=== PATIENT | male | born 1995 | race African-American/Black ===

== ENCOUNTER 2018-07-28 07:23 | Emergency (ER) | payer OTHER ==
[2018-07-28] MEDS ORDERED: predniSONE 20 MG TAB ONE (07:43)
[2018-07-28] MEDS ORDERED: IPRATROPIUM BROM 0.5MG/2.5ML ONE ×2 (07:59→09:41)
[2018-07-28] MEDS ORDERED: ALBUTEROL 2.5 MG/3 ML NEB SOL ONE ×3 (07:59→11:09)
--- NOTE | 2018-07-28 11:40 | ER ---
Nurse's Notes [facility] Name: Heron Long Age: 22 yrs Sex: Male : 1995 Arrival Date: 07/28/2018 Time: 07:25 Bed 19 Private MD: Diagnosis: Severe persistent asthma with (acute) exacerbation Presentation: 07/28 07:25 Presenting complaint: EMS states: called out for asthma attack that started this em morning, SPO2 on scene was 92% on RA with audible wheezing, pt reports chest pain with cough, given A\T\A treatment, SPO2 98% after treatment, pt appears in no apparent distress. Transition of care: patient was not received from another setting of care. Onset of symptoms was July 28, 2018. Risk Assessment: Do you want to hurt yourself or someone else? Patient reports no desire to harm self or others. Initial Sepsis Screen: Does the patient meet any 2 criteria? No. Patient's initial sepsis screen is negative. Does the patient have a suspected source of infection? No. Patient's initial sepsis screen is negative. Care prior to arrival: Medication(s) given: Albuterol Neb x 1, Atrovent Neb x 1. 07:25 Method Of Arrival: EMS: [facility] em 07:25 Acuity: DIPTI 3 iw Triage Assessment: 07:32 General: Appears in no apparent distress. comfortable, Behavior is calm, cooperative. em Pain: Complains of pain in chest Pain currently is 7 out of 10 on a pain scale. Historical: - Allergies: 07:30 No Known Allergies; em - Home Meds: 07:30 Flovent Inhl [Active]; flunisolide 25 mcg (0.025 %) Nasal spry [Active]; Minocycline em Oral [Active]; Nasonex 50 mcg/actuation Nasal spry [Active]; - PMHx: 07:32 Asthma; em - PSHx: 07:32 None; em - Immunization history:: Adult Immunizations up to date. - Social history:: Smoking status: Patient/guardian denies using tobacco. - Ebola Screening: : Patient negative for fever greater than or equal to 101.5 degrees Fahrenheit, and additional compatible Ebola Virus Disease symptoms Patient denies exposure to infectious person Patient denies travel to an Ebola-affected area in the 21 days before illness onset No symptoms or risks identified at this time. Screenin:42 Abuse screen: Denies threats or abuse. Nutritional screening: No deficits noted. em Tuberculosis screening: No symptoms or risk factors identified. Fall Risk None identified. Assessment: 07:44 General: Appears in no apparent distress. comfortable, Behavior is calm, cooperative, em Denies fever. Pain: Complains of pain in chest Pain currently is 7 out of 10 on a pain scale. Pain began 2 hours ago. Aggravated by. Neuro: Level of Consciousness is awake, alert, obeys commands, Oriented to person, place, time, situation. Cardiovascular: Reports chest pain, shortness of breath, Denies nausea, vomiting, Capillary refill < 3 seconds Patient's skin is warm and dry. Respiratory: Reports shortness of breath cough that is non-productive, pain with cough Airway is patent Respiratory effort is even, unlabored, Respiratory pattern is regular, symmetrical, Breath sounds with wheezes in left posterior lower lobe and right posterior lower lobe the patient has mild shortness of breath. GI: Abdomen is flat. : No signs and/or symptoms were reported regarding the genitourinary system. EENT: No signs and/or symptoms were reported regarding the EENT system. Derm: Skin is intact, Skin is pink, warm \T\ dry. Musculoskeletal: Capillary refill < 3 seconds, Range of motion: intact in all extremities. 08:00 Reassessment: Patient appears in no apparent distress at this time. I agree with above iw assessment by Oneil Valdes LVN. 08:23 Reassessment: Patient appears in no apparent distress at this time. Patient and/or em family updated on plan of care and expected duration. Pain level reassessed. Patient is alert, oriented x 3, equal unlabored respirations, skin warm/dry/pink. assisted pt with urinal, correctional officer captain at bedside, breathing treatment complete, pt wheeled to x-ray dept. with correctional officers. 09:15 Reassessment: Patient appears in no apparent distress at this time. Patient and/or em family updated on plan of care and expected duration. Pain level reassessed. Patient is alert, oriented x 3, equal unlabored respirations, skin warm/dry/pink. provider at bedside Patient states symptoms have improved. 10:31 Reassessment: Patient appears in no apparent distress at this time. Patient and/or em family updated on plan of care and expected duration. Pain level reassessed. Patient is alert, oriented x 3, equal unlabored respirations, skin warm/dry/pink. Patient states symptoms have improved. 11:11 Reassessment: Patient appears in no apparent distress at this time. Patient and/or em family updated on plan of care and expected duration. Pain level reassessed. pt request another breathing treatment, pt wheezing shanice. SPO2 92%, provider notified. 12:23 Reassessment: Patient appears in no apparent distress at this time. Patient and/or em family updated on plan of care and expected duration. Pain level reassessed. Patient is alert, oriented x 3, equal unlabored respirations, skin warm/dry/pink. called report to JOJO Maldonado at [facility] in [place], pending transportation Patient states symptoms have improved. 12:53 Reassessment: Patient appears in no apparent distress at this time. Patient and/or em family updated on plan of care and expected duration. Pain level reassessed. Patient is alert, oriented x 3, equal unlabored respirations, skin warm/dry/pink. report given to [facility]. Vital Signs: 07:32 BP 129 / 69; Pulse 87; Resp 20; Temp 97.9(O); Pulse Ox 98% on R/A; Weight 79.38 kg; em Height 5 ft. 8 in. (172.72 cm); Pain 7/10; 08:11 BP 131 / 67; Pulse 75; Resp 18; Pulse Ox 100% on Nebulizer Mask; em 09:33 BP 131 / 76; Pulse 64; Resp 20; Pulse Ox 97% on R/A; mh5 10:34 BP 112 / 49; Pulse 71; Resp 20; Pulse Ox 96% on R/A; mh5 11:54 BP 126 / 73; Pulse 87; Resp 21; Pulse Ox 93% on R/A; Pain 8/10; em 12:53 BP 118 / 81; Pulse 82; Resp 22; Pulse Ox 92% on R/A; em 07:32 Body Mass Index 26.61 (79.38 kg, 172.72 cm) ED Course: 07:25 Patient arrived in ED. em 07:27 Darell Moya MD is Attending Physician. gs 07:32 Arm band placed on. em 07:33 Bed in low position. Call light in reach. Adult w/ patient. correctional officers at em bedside. Pulse ox on. NIBP on. 07:38 Oneil Valdes LVN is Primary Nurse. em 07:56 Triage completed. iw 08:44 X-ray completed. Patient tolerated procedure well. tm4 08:45 XRAY Chest Pa And Lat (2 Views) In Process Unspecified. EDMS 10:39 initiated a transfer with Krystle at the [facility] managed care line. eb 11:[address] Alvarado from [facility] with ED doctor for patient transfer consultation. eb 12:23 No provider procedures requiring assistance completed. Patient did not have IV access em during this emergency room visit. Administered Medications: 07:42 Drug: predniSONE 40 mg Route: PO; em 07:50 Follow up: Response: No adverse reaction em 07:57 Drug: Albuterol 2.5 mg Route: Inhalation; em 08:30 Follow up: Response: No adverse reaction; Marked relief of symptoms em 07:57 Drug: AtroVENT Aerosol 0.5 mg Route: Inhalation; em 08:30 Follow up: Response: No adverse reaction; Marked relief of symptoms em 08:30 Follow up: Response: No adverse reaction em 09:41 Drug: Albuterol 2.5 mg Route: Inhalation; em 10:20 Follow up: Response: No adverse reaction em 09:41 Drug: AtroVENT Aerosol 0.5 mg Route: Inhalation; em 10:20 Follow up: Response: No adverse reaction em 11:10 Drug: Albuterol 2.5 mg Route: Inhalation; em 11:40 Follow up: Response: No adverse reaction em Output: 08:25 Urine: 600ml (Voided); Total: 600ml. em Outcome: 11:40 ER care complete, transfer ordered by . 12:53 Transferred by ground EMS to [facility], Transfer form em completed. X-rays sent w/ patient. 12:53 Condition: good 12:53 Instructed on the need for transfer, Demonstrated understanding of instructions. 13:01 Patient left the ED. iw Signatures: Dispatcher [employer] EDMS Monique Massey tm4 Oneil Valdes LVN LVN em Adilia Phillip, JOJO URIBE No Wooten [facility] Darell Moya MD MD gs Botello, Elizabeth eb
--- NOTE | 2018-07-28 11:40 | RAD REPORT ---
EXAM DESCRIPTION: RAD - Chest Pa And Lat (2 Views) - 07/28/2018 8:46 am CLINICAL HISTORY: COUGH Chest pain. COMPARISON: No comparisons FINDINGS: The lungs are clear. The heart is normal in size. No displaced fractures. IMPRESSION: No acute or concerning finding suspected.
--- NOTE | 2018-07-28 11:40 | EDPHYS ---
Physician Documentation [facility] Name: Heron Long Age: 22 yrs Sex: Male : 1995 Arrival Date: 07/28/2018 Time: 07:25 Bed 19 Private MD: ED Physician Darell Moya HPI: 07/28 11:07 This 22 yrs old Black Male presents to ER via EMS with complaints of wheezing, asthma gs attacks. 11:07 Onset: The symptoms/episode began/occurred acutely, today. Modifying factors: The gs symptoms are alleviated by inhaler, the symptoms are aggravated by nothing. Associated signs and symptoms: Pertinent negatives: chest pain, fever, palpitations. Severity of symptoms: At their worst the symptoms were moderate in the emergency department the symptoms are unchanged. The patient has experienced similar episodes in the past, several times. Historical: - Allergies: :30 No Known Allergies; em - Home Meds: 07:30 Flovent Inhl [Active]; flunisolide 25 mcg (0.025 %) Nasal spry [Active]; Minocycline em Oral [Active]; Nasonex 50 mcg/actuation Nasal spry [Active]; - PMHx: 07:32 Asthma; em - PSHx: 07:32 None; em - Immunization history:: Adult Immunizations up to date. - Social history:: Smoking status: Patient/guardian denies using tobacco. - Ebola Screening: : Patient negative for fever greater than or equal to 101.5 degrees Fahrenheit, and additional compatible Ebola Virus Disease symptoms Patient denies exposure to infectious person Patient denies travel to an Ebola-affected area in the 21 days before illness onset No symptoms or risks identified at this time. ROS: 11:07 All other systems are negative. gs Exam: 11:07 Head/Face: Normocephalic, atraumatic. Eyes: Pupils equal round and reactive to light, gs extra-ocular motions intact. Lids and lashes normal. Conjunctiva and sclera are non-icteric and not injected. Cornea within normal limits. Periorbital areas with no swelling, redness, or edema. ENT: Nares patent. No nasal discharge, no septal abnormalities noted. Tympanic membranes are normal and external auditory canals are clear. Oropharynx with no redness, swelling, or masses, exudates, or evidence of obstruction, uvula midline. Mucous membranes moist. Neck: Trachea midline, no thyromegaly or masses palpated, and no cervical lymphadenopathy. Supple, full range of motion without nuchal rigidity, or vertebral point tenderness. No Meningismus. Chest/axilla: Normal chest wall appearance and motion. Nontender with no deformity. No lesions are appreciated. 11:07 Abdomen/GI: Soft, non-tender, with normal bowel sounds. No distension or tympany. No guarding or rebound. No evidence of tenderness throughout. Back: No spinal tenderness. No costovertebral tenderness. Full range of motion. Skin: Warm, dry with normal turgor. Normal color with no rashes, no lesions, and no evidence of cellulitis. MS/ Extremity: Pulses equal, no cyanosis. Neurovascular intact. Full, normal range of motion. Neuro: Awake and alert, GCS 15, oriented to person, place, time, and situation. Cranial nerves II-XII grossly intact. Motor strength 5/5 in all extremities. Sensory grossly intact. Cerebellar exam normal. Normal gait. 11:07 Constitutional: The patient appears alert, awake, in obvious distress, moderately distressed. 11:07 Cardiovascular: Rate: normal, Rhythm: regular, Pulses: no pulse deficits are appreciated. 11:07 Respiratory: Vital Signs: 07:32 BP 129 / 69; Pulse 87; Resp 20; Temp 97.9(O); Pulse Ox 98% on R/A; Weight 79.38 kg; em Height 5 ft. 8 in. (172.72 cm); Pain 7/10; 08:11 BP 131 / 67; Pulse 75; Resp 18; Pulse Ox 100% on Nebulizer Mask; em 09:33 BP 131 / 76; Pulse 64; Resp 20; Pulse Ox 97% on R/A; mh5 10:34 BP 112 / 49; Pulse 71; Resp 20; Pulse Ox 96% on R/A; mh5 11:54 BP 126 / 73; Pulse 87; Resp 21; Pulse Ox 93% on R/A; Pain 8/10; em 12:53 BP 118 / 81; Pulse 82; Resp 22; Pulse Ox 92% on R/A; em 07:32 Body Mass Index 26.61 (79.38 kg, 172.72 cm) em MDM: 07:27 Patient medically screened. 11:32 Differential diagnosis: acute asthma, exercise-induced asthma, reactive airway, gs pneumonia. Data reviewed: vital signs, nurses notes. Response to treatment: the patient's symptoms have markedly improved after treatment. 07/28 07:29 Order name: XRAY Chest Pa And Lat (2 Views) 07/28 07:29 Order name: PEAK FLOW 07/28 11:10 Order name: Diet Regular; Complete Time: 11:10 em Administered Medications: 07:42 Drug: predniSONE 40 mg Route: PO; em 07:50 Follow up: Response: No adverse reaction em 07:57 Drug: Albuterol 2.5 mg Route: Inhalation; em 08:30 Follow up: Response: No adverse reaction; Marked relief of symptoms em 07:57 Drug: AtroVENT Aerosol 0.5 mg Route: Inhalation; em 08:30 Follow up: Response: No adverse reaction; Marked relief of symptoms em 08:30 Follow up: Response: No adverse reaction em 09:41 Drug: Albuterol 2.5 mg Route: Inhalation; em 10:20 Follow up: Response: No adverse reaction em 09:41 Drug: AtroVENT Aerosol 0.5 mg Route: Inhalation; em 10:20 Follow up: Response: No adverse reaction em 11:10 Drug: Albuterol 2.5 mg Route: Inhalation; em 11:40 Follow up: Response: No adverse reaction em Disposition: 07/28/18 11:40 Transfer ordered to [facility]. Diagnosis is Severe persistent asthma with (acute) exacerbation. - Reason for transfer: Higher level of care. - Accepting physician is kevin. - Condition is Stable. - Problem is an acute exacerbation. - Symptoms have improved. Signatures: Dispatcher [employer] EDHI Oneil Valdes, MEGHAN SUPERINTENDENT TRACK em Adilia Phillip RN RN iw Darell Moya MD MD Corrections: (The following items were deleted from the chart) 11:28 11:27 EKG - Nurse/Tech ordered. [facility] 11:41 11:40 07/28/2018 11:40 Transfer ordered to [facility]. Diagnosis is Severe persistent asthma with (acute) exacerbation. Reason for transfer: Higher level of care. Accepting physician is candice. Condition is Stable. Problem is an acute exacerbation. Symptoms have improved. 13:01 11:41 07/28/2018 11:40 Transfer ordered to [facility]. Diagnosis is Severe iw persistent asthma with (acute) exacerbation. Reason for transfer: Higher level of care. Accepting physician is kevin. Condition is Stable. Problem is an acute exacerbation. Symptoms have improved. gs
== END 2018-07-28 13:01 | disposition short-term general hospital (02) ==
LOC: ER 07:23
DX: J45.51 Severe persistent asthma with (acute) exacerbation (principal)
CPT/HCPCS: 71046; 99285; J7512

== ENCOUNTER 2018-08-17 11:30 | Emergency (ER) | payer OTHER ==
[2018-08-17] MEDS ORDERED: predniSONE 20 MG TAB ONE (11:54)
[2018-08-17] MEDS ORDERED: ALBUTEROL 2.5 MG/3 ML NEB SOL ONE (11:54)
[2018-08-17] MEDS ORDERED: FAMOTIDINE 20 MG TAB ONE (11:55)
--- NOTE | 2018-08-17 13:21 | EDPHYS ---
Physician Documentation [facility] Name: Heron Long Age: 22 yrs Sex: Male : 1995 Arrival Date: 08/17/2018 Time: 11:37 Bed 19 Private MD: ED Physician Elmo Joseph HPI: 08/17 11:52 This 22 yrs old Black Male presents to ER via [employer] with complaints of Asthma snw Exacerbation. 11:52 The patient presents to the emergency department with wheezing, Current therapy: snw albuterol inhaler, steroid inhaler, that began weather change. Onset: The symptoms/episode began/occurred suddenly, today. Modifying factors: The symptoms are alleviated by nothing. Associated signs and symptoms: The patient has no apparent associated signs or symptoms. Severity of symptoms: At their worst the symptoms were mild moderate. The patient has experienced similar episodes in the past. [facility]. Historical: - Allergies: 11:43 Grass; ss 11:43 Potato; ss - Home Meds: 11:43 Flovent Inhl [Active]; Proventil Inhl [Active]; ss - PMHx: 11:43 Asthma; ss - PSHx: 11:43 None; ss - Immunization history:: Adult Immunizations unknown. - Social history:: Smoking status: Patient/guardian denies using tobacco, the patient reports quitting approximately 3 years ago. - Ebola Screening: : Patient denies exposure to infectious person Patient denies travel to an Ebola-affected area in the 21 days before illness onset. ROS: 11:52 Constitutional: Negative for fever, chills, and weight loss, Eyes: Negative for injury, snw pain, redness, and discharge, ENT: Negative for injury, pain, and discharge, Neck: Negative for injury, pain, and swelling, Cardiovascular: Negative for chest pain, palpitations, and edema, Abdomen/GI: Negative for abdominal pain, nausea, vomiting, diarrhea, and constipation, Back: Negative for injury and pain, : Negative for injury, bleeding, discharge, and swelling, MS/Extremity: Negative for injury and deformity, Skin: Negative for injury, rash, and discoloration, Neuro: Negative for headache, weakness, numbness, tingling, and seizure. 11:52 Respiratory: Positive for cough, shortness of breath. Exam: 11:51 Constitutional: This is a well developed, well nourished patient who is awake, alert, snw and in no acute distress. Head/Face: Normocephalic, atraumatic. Eyes: Pupils equal round and reactive to light, extra-ocular motions intact. Lids and lashes normal. Conjunctiva and sclera are non-icteric and not injected. Cornea within normal limits. Periorbital areas with no swelling, redness, or edema. ENT: Nares patent. No nasal discharge, no septal abnormalities noted. Tympanic membranes are normal and external auditory canals are clear. Oropharynx with no redness, swelling, or masses, exudates, or evidence of obstruction, uvula midline. Mucous membranes moist. Neck: Trachea midline, no thyromegaly or masses palpated, and no cervical lymphadenopathy. Supple, full range of motion without nuchal rigidity, or vertebral point tenderness. No Meningismus. Chest/axilla: Normal chest wall appearance and motion. Nontender with no deformity. No lesions are appreciated. Cardiovascular: Regular rate and rhythm with a normal S1 and S2. No gallops, murmurs, or rubs. Normal PMI, no JVD. No pulse deficits. Abdomen/GI: Soft, non-tender, with normal bowel sounds. No distension or tympany. No guarding or rebound. No evidence of tenderness throughout. Back: No spinal tenderness. No costovertebral tenderness. Full range of motion. Skin: Warm, dry with normal turgor. Normal color with no rashes, no lesions, and no evidence of cellulitis. MS/ Extremity: Pulses equal, no cyanosis. Neurovascular intact. Full, normal range of motion. Neuro: Awake and alert, GCS 15, oriented to person, place, time, and situation. Cranial nerves II-XII grossly intact. Motor strength 5/5 in all extremities. Sensory grossly intact. Cerebellar exam normal. Normal gait. 11:51 Respiratory: the patient does not display signs of respiratory distress, Respirations: normal, Breath sounds: are clear throughout, no bronchial sounds, no decreased breath sounds. Vital Signs: 11:43 BP 125 / 54; Pulse 67; Resp 16; Temp 97.0; Pulse Ox 100% on R/A; Weight 79.38 kg; ss Height 5 ft. 8 in. (172.72 cm); Pain 8/10; 13:18 BP 115 / 57; Pulse 65; Resp 19; Pulse Ox 99% on R/A; Pain 8/10; em 11:43 Body Mass Index 26.61 (79.38 kg, 172.72 cm) ss MDM: 11:39 Patient medically screened. snw 13:23 Data reviewed: vital signs, nurses notes. Data interpreted: Pulse oximetry: on room air snw is 99 %. Interpretation: normal. Counseling: I had a detailed discussion with the patient and/or guardian regarding: the historical points, exam findings, and any diagnostic results supporting the discharge/admit diagnosis, the need for outpatient follow up, to return to the emergency department if symptoms worsen or persist or if there are any questions or concerns that arise at home. Special discussion: Based on the history and exam findings, there is no indication for further emergent testing or inpatient evaluation. I discussed with the patient/guardian the need to see the primary care provider for further evaluation of the symptoms. 08/17 12:49 Order name: Recheck VS; Complete Time: 13:18 snw Administered Medications: 11:55 Drug: predniSONE 20 mg Route: PO; em 12:20 Follow up: Response: No adverse reaction em 11:56 Drug: Pepcid 20 mg Route: PO; em 12:20 Follow up: Response: No adverse reaction em 11:56 Drug: Albuterol 2.5 mg Route: Inhalation; em 12:20 Follow up: Response: No adverse reaction em 13:41 Drug: Motrin 400 mg Route: PO; em 13:41 Follow up: Response: Medication administered at discharge. em Disposition: 15:24 Co-signature as Attending Physician, Elmo Joseph MD I agree with the assessment and kdr plan of care. Disposition: 08/17/18 13:20 Discharged to Home. Impression: Asthma. - Condition is Stable. - Discharge Instructions: Asthma, Adult. - Prescriptions for Prednisone 20 mg Oral Tablet - take 1 tablet by ORAL route every 12 hours for 5 days; 10 tablet. Pepcid 20 mg Oral Tablet - take 1 tablet by ORAL route once daily; 20 tablet. - Medication Reconciliation Form, Thank You Letter, Antibiotic Education, Prescription Opioid Use form. - Follow up: Private Physician; When: 1 - 2 days; Reason: Recheck today's complaints, Continuance of care, Re-evaluation by your physician. Follow up: Emergency Department; When: As needed; Reason: Worsening of condition. - Notes: please continue current medications as directed. Happy Birthday tomorrow Signatures: Elmo Joseph MD MD kdr Teri Marin, TICKETING AGENT-C TICKETING AGENT-Csnw Oneil Valdes, AMMONIA REFRIGERATION TECHNICIAN AMMONIA REFRIGERATION TECHNICIAN em Mariela Lomeli, JOJO RN ss Corrections: (The following items were deleted from the chart) 13:48 13:20 08/17/2018 13:20 Discharged to Home. Impression: Asthma. Condition is Stable. em Forms are Medication Reconciliation Form, Thank You Letter, Antibiotic Education, Prescription Opioid Use. Follow up: Private Physician; When: 1 - 2 days; Reason: Recheck today's complaints, Continuance of care, Re-evaluation by your physician. Follow up: Emergency Department; When: As needed; Reason: Worsening of condition. snw
--- NOTE | 2018-08-17 13:21 | ER ---
Nurse's Notes [facility] Name: Heron Long Age: 22 yrs Sex: Male : 1995 Arrival Date: 08/17/2018 Time: 11:37 Bed 19 Private MD: Diagnosis: Asthma Presentation: 08/17 11:37 Presenting complaint: Patient states: shortness of breath, low back pain and CP that ss began last night. Pt reports a history of asthma and feels he is having an exacerbation. Denies fever. Transition of care: [facility]. Onset of symptoms was August 16, 2018. Risk Assessment: Do you want to hurt yourself or someone else? Patient reports no desire to harm self or others. Initial Sepsis Screen: Does the patient meet any 2 criteria? No. Patient's initial sepsis screen is negative. Does the patient have a suspected source of infection? No. Patient's initial sepsis screen is negative. Care prior to arrival: None. 11:37 Method Of Arrival: Law Enforcement: [place] [employer] 11:37 Acuity: DIPTI 3 ss Historical: - Allergies: 11:43 Grass; ss 11:43 Potato; ss - Home Meds: 11:43 Flovent Inhl [Active]; Proventil Inhl [Active]; ss - PMHx: 11:43 Asthma; ss - PSHx: 11:43 None; ss - Immunization history:: Adult Immunizations unknown. - Social history:: Smoking status: Patient/guardian denies using tobacco, the patient reports quitting approximately 3 years ago. - Ebola Screening: : Patient denies exposure to infectious person Patient denies travel to an Ebola-affected area in the 21 days before illness onset. Screenin:58 Abuse screen: Denies threats or abuse. Nutritional screening: No deficits noted. em Tuberculosis screening: No symptoms or risk factors identified. Fall Risk None identified. Assessment: 11:58 General: Appears in no apparent distress. comfortable, Behavior is calm, cooperative. em Pain: Complains of pain in lumbar area and chest Pain currently is 7 out of 10 on a pain scale. Neuro: Level of Consciousness is awake, alert, obeys commands, Oriented to person, place, time, situation, Moves all extremities. Speech is normal. Cardiovascular: Capillary refill < 3 seconds Patient's skin is warm and dry. Respiratory: Reports pain with respiration Airway is patent Respiratory effort is even, unlabored, Respiratory pattern is regular, symmetrical, Breath sounds are clear bilaterally. Denies cough, shortness of breath. GI: Abdomen is flat. Derm: Skin is intact, Skin is pink, warm \T\ dry. Musculoskeletal: pt has restraints. 12:05 General: The previous assessment is accurate, call light remains within reach. . ss 13:15 Reassessment: Patient appears in no apparent distress at this time. Patient and/or em family updated on plan of care and expected duration. Pain level reassessed. Patient is alert, oriented x 3, equal unlabored respirations, skin warm/dry/pink. 13:34 Reassessment: Patient appears in no apparent distress at this time. Patient and/or em family updated on plan of care and expected duration. Pain level reassessed. Patient is alert, oriented x 3, equal unlabored respirations, skin warm/dry/pink. rates pain 8/10, provider notified, new medication orders received. Vital Signs: 11:43 BP 125 / 54; Pulse 67; Resp 16; Temp 97.0; Pulse Ox 100% on R/A; Weight 79.38 kg; ss Height 5 ft. 8 in. (172.72 cm); Pain 8/10; 13:18 BP 115 / 57; Pulse 65; Resp 19; Pulse Ox 99% on R/A; Pain 8/10; em 11:43 Body Mass Index 26.61 (79.38 kg, 172.72 cm) ED Course: 11:37 Patient arrived in ED. ss 11:37 Oneil Valdes LVN is Primary Nurse. em 11:39 Teri Marin FNP-C is PHCP. snw 11:39 Elmo Joseph MD is Attending Physician. snw 11:40 Triage completed. ss 11:43 Arm band placed on right wrist. ss 11:58 Patient has correct armband on for positive identification. Bed in low position. Call em light in reach. Side rails up X2. Adult w/ patient. correctional officers at bedside. 11:58 No provider procedures requiring assistance completed. em 13:44 Patient did not have IV access during this emergency room visit. em Administered Medications: 11:55 Drug: predniSONE 20 mg Route: PO; em 12:20 Follow up: Response: No adverse reaction em 11:56 Drug: Pepcid 20 mg Route: PO; em 12:20 Follow up: Response: No adverse reaction em 11:56 Drug: Albuterol 2.5 mg Route: Inhalation; em 12:20 Follow up: Response: No adverse reaction em 13:41 Drug: Motrin 400 mg Route: PO; em 13:41 Follow up: Response: Medication administered at discharge. em Outcome: 13:20 Discharge ordered by . alexia 13:43 Discharged to Law Enforcement em 13:43 Condition: good 13:43 Discharge instructions given to police, Instructed on discharge instructions, follow up and referral plans. medication usage, Demonstrated understanding of instructions, follow-up care, medications, Prescriptions given X 2. 13:48 Patient left the ED. em Signatures: Teri Marin, APARTMENT COORDINATOR-C APARTMENT COORDINATOR-Csnw Oneil Valdes, FLATWORK CATCHER FLATWORK CATCHER em Mariela Lomeli, RN RN ss Corrections: (The following items were deleted from the chart) 13:44 11:58 Respiratory: Airway is patent Respiratory effort is even, unlabored, Respiratory em pattern is regular, symmetrical, em
[2018-08-17] MEDS ORDERED: IBUPROFEN 400 MG TAB ONE (13:42)
== END 2018-08-17 13:48 | disposition home or self-care (01) ==
LOC: ER 11:30
DX: J45.909 Unspecified asthma, uncomplicated (principal); Z91.018 Allergy to other foods; Z91.048 Other nonmedicinal substance allergy status
CPT/HCPCS: 99284; J7512